=== PATIENT | male | born 1985 | race Caucasian/White ===

== ENCOUNTER 2016-07-02 07:04 | Emergency (ER) | payer BC ==
[~2016-07-02] VITALS: Ht 175.3 cm; Wt 85.0 kg
[2016-07-02 07:07] VITALS: BP 172/82; TEMP 98.3
[2016-07-02] MEDS ORDERED: NORCO 325 MG-51 TAB PO (08:34)
[2016-07-02 09:02] VITALS: PULSE 77
[2016-07-03] MEDS ORDERED: FIORICET 325 MG1 TA1 PO (06:48)
== END 2016-07-02 09:05 | disposition home or self-care (01) ==
LOC: COL.ER 07:04
DX: R51 Headache (principal)
CPT/HCPCS: J1170; J1885; J2405; J7030

== ENCOUNTER 2016-07-03 05:04 | Emergency (ER) | payer BC ==
[~2016-07-03] VITALS: Ht 175.3 cm; Wt 85.0 kg
[~2016-07-03 05:04] MED LIST: NORCO 325 MG-51 TAB PO
[2016-07-03 05:07] VITALS: TEMP 98.1
[2016-07-03] MEDS ORDERED: FIORICET 325 MG1 TA1 PO (06:48)
[2016-07-03 07:33] VITALS: BP 137/94; PULSE 63
== END 2016-07-03 07:30 | disposition home or self-care (01) ==
LOC: COL.ER 05:04
DX: R51 Headache (principal)
CPT/HCPCS: J1100; J1885; J2550; J3030; J7040